=== PATIENT | female | born 1975 | race Caucasian/White ===

== ENCOUNTER → 2021-07-15 | Outpatient (CLI) | payer BC ==
[~2021-07-15] MED LIST: ALBUTEROL0.09 MG/A2 IH; AMOXICILLIN500 MG PO; MOTRIN800 MG PO; OTC COLD MEDS; PREDNICOT10 MG PO; PROVENTIL0.09 MG/AC IH; TRAMADOL50 MG PO; ZITHROMAX Z PA250 MG PO
[2021-07-15 12:26] LABS: CHOLESTEROL 189 mg/dL (<200); TRIGLYCERIDES 163 mg/dl (<150)
[2021-07-15 12:28] LABS: LDL CHOLESTEROL 87 mg/dL (9-159)
== END | disposition home or self-care (01) ==
LOC: LAB 11:44
PROVIDERS: ATTEND Family Medicine
DX: E78.00 Pure hypercholesterolemia, unspecified (principal)

== ENCOUNTER → 2022-11-27 | Outpatient (CLI) | payer BC | END | disposition home or self-care (01) | LOC: RAD 15:50 | PROVIDERS: ATTEND Chiropractor | DX: M54.2 Cervicalgia (principal); M54.50 Low back pain, unspecified ==

== ENCOUNTER → 2023-08-30 | Outpatient (CLI) | payer BC ==
[2023-08-30 11:11] LABS: HEMATOCRIT 39.7 % (37.0-47.0); MEAN CORPUSCULAR HGB 31.4 pg (27.0-31.0); MEAN CORPUSCULAR HGB CONC 33.8 g/dl (33.0-37.0); MEAN PLATELET VOLUME 9.6 fl (9.6-12.3); RED BLOOD COUNT 4.27 10*6/uL (4.10-5.10); RED CELL DISTRI WIDTH 12.2 % (0-14.5); WHITE BLOOD COUNT 6.2 10*3/uL (4.8-10.8)
[2023-08-30 11:37] LABS: ALKALINE PHOSPHATASE 55 U/L (46-116); BUN 8 mg/dl (9-23); CHLORIDE 108 mmol/L (98-107); CHOLESTEROL 230 mg/dL (<200); FREE T4 0.95 ng/dl (0.89-1.76); LDL CHOLESTEROL 143 mg/dL (9-159); POTASSIUM 4.3 mmol/L (3.4-5.1); SGPT/ALT 13 U/L (5-49); TOTAL PROTEIN 6.8 gm/dL (6.0-8.0); TRIGLYCERIDES 88 mg/dl (<150)
[2023-08-30 12:00] LABS: VITAMIN D, 25-HYDROXY 61.4 ng/mL (30-100)
[2023-09-04 00:03] LABS: TESTOSTERONE FREE, (DIRECT) 0.9 pg/mL (0.0-4.2)
== END | disposition home or self-care (01) ==
LOC: LAB 10:24
PROVIDERS: ATTEND Family Medicine
DX: Z00.00 Encounter for general adult medical examination without abnormal findings (principal); E74.00 Glycogen storage disease, unspecified; E55.9 Vitamin D deficiency, unspecified; F41.1 Generalized anxiety disorder; G47.00 Insomnia, unspecified

== ENCOUNTER → 2024-09-23 | Outpatient (CLI) | payer BC ==
[2024-09-23 17:03] LABS: HEMATOCRIT 38.5 % (37.0-47.0); MEAN CELL VOLUME 94.4 fl (81.0-99.0); MEAN CORPUSCULAR HGB 31.4 pg (27.0-31.0); MEAN CORPUSCULAR HGB CONC 33.2 g/dl (33.0-37.0); MEAN PLATELET VOLUME 10.3 fl (9.6-12.3); RED BLOOD COUNT 4.08 10*6/uL (4.10-5.10); RED CELL DISTRI WIDTH 12.3 % (0-14.5); WHITE BLOOD COUNT 5.8 10*3/uL (4.8-10.8)
[2024-09-23 17:35] LABS: ALKALINE PHOSPHATASE 52 U/L (46-116); BUN 12 mg/dl (9-23); CHLORIDE 109 mmol/L (98-107); CHOLESTEROL 187 mg/dL (<200); LDL CHOLESTEROL 104 mg/dL (9-159); TRIGLYCERIDES 68 mg/dl (<150)
[2024-09-23 17:40] LABS: VITAMIN D, 25-HYDROXY 47.9 ng/mL (30-100)
[2024-09-23 17:45] LABS: SGPT/ALT < 7 U/L (5-49)
== END | disposition home or self-care (01) ==
LOC: LAB 15:57
PROVIDERS: ATTEND Family Medicine
DX: Z00.00 Encounter for general adult medical examination without abnormal findings (principal); I10 Essential (primary) hypertension; E55.9 Vitamin D deficiency, unspecified; R53.82 Chronic fatigue, unspecified; N92.6 Irregular menstruation, unspecified; R23.2 Flushing